=== PATIENT | female | born 1990 | race Caucasian/White ===

== ENCOUNTER 2018-07-04 01:59 | Inpatient (IN) | payer OTHER ==
[~2018-07-04] VITALS: Ht 165.1 cm; Wt 0.3 kg
[~2018-07-04 01:59] MED LIST: CYCL10 PO; Cleocin HCl150 MG PO; Cleocin HCl300 MG PO; Crutch1 EACH MISC; ESCI10 PO; IBUP600 PO; Keflex500 MG PO; LAMO50; Naprosyn375 MG PO; Naprosyn500 MG PO; Norco 10-325 T1 EACH PO; Norco 5-325 Ta1 EACH PO; Percocet 10-321 EACH PO; Polytrim Eye Dr10 ML RIGHTEYE; Prednisone10 MG PO; Prednisone20 MG PO; Ultram50 MG PO; Zofran Odt4 MG SL
[2018-07-04] MEDS ORDERED: FLUO10 (08:42)
[2018-07-04] MEDS ORDERED: LEVSOD125 (08:43)
--- NOTE | 2018-07-04 08:44 | NUR ---
PT REPORTS SHE USED TO CUT HERSELF
--- NOTE | 2018-07-04 09:24 | NUR ---
0840 ADMIT FOR LABOR
[2018-07-04 10:01] LABS: BASOPHILS ABSOLUTE AUTO 0.03 K/mm3 (0.00-0.23); BASOPHILS PERCENT AUTO 0 % (0-2); EOSINOPHILS PERCENT AUTO 0 % (0-6); Hematocrit 40.5 % (33.0-51.0); Hemoglobin 13.5 g/dL (11.5-16.0); IMMATURE GRAN PERCENT AUTO 1 % (0-1); LYMPHOCYTES ABSOLUTE AUTO 1.35 K/mm3 (0.84-5.20); LYMPHOCYTES PERCENT AUTO 8 % (21-46); MONOCYTES ABSOLUTE AUTO 0.82 K/mm3 (0.16-1.47); MONOCYTES PERCENT AUTO 5 % (4-13); Mean Corpuscular HGB 31.4 pg (26.0-34.0); Mean Corpuscular HGB Conc 33.3 g/dL (31.5-36.5); Mean Corpuscular Volume 94 fL (80-100); NEUTROPHILS ABSOLUTE AUTO 14.02 K/mm3 (1.96-9.15); NEUTROPHILS PERCENT AUTO 86 % (41-73); Platelet Count 130 K/mm3 (150-400); RDW Coefficient Variation 12.6 % (11.7-14.2); RDW Standard Deviation 43.3 fL (35.1-46.3); White Blood Cell Count 16.32 K/mm3 (4.00-11.30)
[2018-07-05 06:20] LABS: BASOPHILS ABSOLUTE AUTO 0.03 K/mm3 (0.00-0.23); BASOPHILS PERCENT AUTO 0 % (0-2); EOSINOPHILS ABSOLUTE AUTO 0.09 K/mm3 (0.00-0.68); EOSINOPHILS PERCENT AUTO 1 % (0-6); Hematocrit 35.6 % (33.0-51.0); Hemoglobin 11.9 g/dL (11.5-16.0); IMMATURE GRAN ABSOLUTE AUTO 0.07 K/mm3 (0.00-0.10); IMMATURE GRAN PERCENT AUTO 1 % (0-1); LYMPHOCYTES ABSOLUTE AUTO 1.79 K/mm3 (0.84-5.20); LYMPHOCYTES PERCENT AUTO 15 % (21-46); MONOCYTES ABSOLUTE AUTO 1.08 K/mm3 (0.16-1.47); MONOCYTES PERCENT AUTO 9 % (4-13); Mean Corpuscular HGB 31.4 pg (26.0-34.0); Mean Corpuscular HGB Conc 33.4 g/dL (31.5-36.5); Mean Corpuscular Volume 94 fL (80-100); NEUTROPHILS ABSOLUTE AUTO 8.97 K/mm3 (1.96-9.15); NEUTROPHILS PERCENT AUTO 75 % (41-73); Platelet Count 110 K/mm3 (150-400); RDW Coefficient Variation 12.8 % (11.7-14.2); RDW Standard Deviation 43.9 fL (35.1-46.3); Red Blood Cell Count 3.79 M/mm3 (3.80-5.20); White Blood Cell Count 12.03 K/mm3 (4.00-11.30)
[2018-07-05 06:22] LABS: Mean Platelet Volume 13.2 fL (9.1-12.4)
--- NOTE | 2018-07-05 07:47 | NUR ---
ASSUMED CARE STABLE PT CARING FOR SELF AND NB WELL, STATE BREAST FEEDING HAS GONE WELL T/O THE NIGHT C/O BACK PAIN
--- NOTE | 2018-07-05 08:48 | NUR ---
assumed care at 0800
[2018-07-05] MEDS ORDERED: IBUP800 PO (10:36)
--- NOTE | 2018-07-05 13:53 | NUR ---
pt EX has found then thru calling the hospital. pt made confidential, pt is now using a password name, was given [facility] number, [facility] dept non emergency number to ask questions. encouraged to stay around people she trusts. the EX continues to call even with being told she is no longer a patient. pt is aware she is safe at the hospital and is making arrangements for her and baby to be safe. pt mom is currently at her bedside.
== END 2018-07-05 15:40 | disposition home or self-care (01) | DRG 807 ==
LOC: BC 01:59 → OBS 01:59 → BC 08:34
PROVIDERS: ADMIT Nurse Practitioner Obstetrics & Gynecology
PROC: 10E0XZZ Delivery of Products of Conception, External Approach (ICD-10-PCS; principal; 2018-07-04)
PROC: 0UQG7ZZ Repair Vagina, Via Natural or Artificial Opening (ICD-10-PCS; 2018-07-04)
PROC: 3E0R3BZ Introduction of Anesthetic Agent into Spinal Canal, Percutaneous Approach (ICD-10-PCS; 2018-07-04)
PROC: 10907ZC Drainage of Amniotic Fluid, Therapeutic from Products of Conception, Via Natural or Artificial Opening (ICD-10-PCS; 2018-07-04)
PROC: 3E0234Z Introduction of Serum, Toxoid and Vaccine into Muscle, Percutaneous Approach (ICD-10-PCS; 2018-07-04)
DX: O99.284 Endocrine, nutritional and metabolic diseases complicating childbirth (principal); Z37.0 Single live birth; O69.89X0 Labor and delivery complicated by other cord complications, not applicable or unspecified; O71.4 Obstetric high vaginal laceration alone; Z3A.37 37 weeks gestation of pregnancy; Z88.0 Allergy status to penicillin; E03.9 Hypothyroidism, unspecified; Z87.891 Personal history of nicotine dependence; Z23 Encounter for immunization
CPT/HCPCS: 36415; 51702; 59025; 85025; 86900; 86901; 90686; 99214; J1885; J2270; J2550; J2590; J3010; J7120

== ENCOUNTER 2022-01-29 16:21 | Emergency (ER) | payer OTHER ==
[~2022-01-29] VITALS: Ht 162.6 cm; Wt 45.4 kg
[~2022-01-29 16:21] MED LIST changes: +FLUO10; +IBUP800 PO; +LEVSOD125
[2022-01-29 16:51] LABS: BASOPHILS ABSOLUTE AUTO 0.05 K/mm3 (0.00-0.23); BASOPHILS PERCENT AUTO 1 % (0-2); EOSINOPHILS ABSOLUTE AUTO 0.07 K/mm3 (0.00-0.68); EOSINOPHILS PERCENT AUTO 1 % (0-6); Hematocrit 42.1 % (33.0-51.0); Hemoglobin 14.4 g/dL (11.5-16.0); IMMATURE GRAN ABSOLUTE AUTO 0.02 K/mm3 (0.00-0.10); IMMATURE GRAN PERCENT AUTO 0 % (0-1); LYMPHOCYTES ABSOLUTE AUTO 3.11 K/mm3 (0.84-5.20); LYMPHOCYTES PERCENT AUTO 47 % (21-46); MONOCYTES ABSOLUTE AUTO 0.44 K/mm3 (0.16-1.47); MONOCYTES PERCENT AUTO 7 % (4-13); Mean Corpuscular HGB Conc 34.2 g/dL (31.5-36.5); Mean Corpuscular Volume 91 fL (80-100); Mean Platelet Volume 9.8 fL (9.1-12.4); NEUTROPHILS ABSOLUTE AUTO 2.97 K/mm3 (1.96-9.15); NEUTROPHILS PERCENT AUTO 45 % (41-73); Platelet Count 245 K/mm3 (150-400); RDW Coefficient Variation 12.6 % (11.7-14.2); RDW Standard Deviation 41.7 fL (35.1-46.3); Red Blood Cell Count 4.65 M/mm3 (3.80-5.20); White Blood Cell Count 6.66 K/mm3 (4.00-11.30)
[2022-01-29 17:10] LABS: Albumin, Blood 4.2 g/dL (3.4-5.0); Albumin/Globulin Ratio 1.2 (0.8-1.8); Bilirubin, Total 0.6 mg/dL (0.1-1.0); Bun/Creatinine Ratio 15.8 (12.0-20.0); Calcium, Blood 9.6 mg/dL (8.5-10.1); Creatinine, Blood 0.82 mg/dL (0.40-1.00); Globulin, Blood 3.4 g/dL (2.2-4.0); Total Protein, Blood 7.6 g/dL (6.4-8.2)
== END 2022-01-29 19:26 | disposition home or self-care (01) ==
LOC: ER 16:21
PROVIDERS: Physician Assistant
DX: R07.9 Chest pain, unspecified (principal); R00.2 Palpitations; Z79.890 Hormone replacement therapy; Z88.0 Allergy status to penicillin
CPT/HCPCS: 36415; 71046; 80053; 83690; 83880; 84443; 84484; 84703; 85025; 85379; 93005; 93010; 99284-25

== ENCOUNTER → 2022-02-03 | Outpatient (CLI) | payer OTHER ==
[2022-02-03 12:29] LABS: U Amphetamine Screen Not Detected; U Barbituate Screen Not Detected; U Benzodiazapine Screen Not Detected; U Buprenorphine Screen Not Detected; U Cannabinoids Screen Not Detected; U Cocaine Screen Not Detected; U Methadone Screen Not Detected; U Methamphetamine Screen Not Detected; U Opiates Screen Not Detected; U Oxycodone Screen Not Detected; U Phencyclidine Screen Not Detected; U Propoxyphene Screen Not Detected
== END ==
LOC: LAB SHORT 08:45 → LAB 08:45
PROVIDERS: Nurse Practitioner Family
DX: Z51.81 Encounter for therapeutic drug level monitoring (principal); Z79.891 Long term (current) use of opiate analgesic